=== PATIENT | male | born 1995 | race Caucasian/White ===

== ENCOUNTER 2017-01-26 09:34 | Emergency (ER) | payer OTHER ==
[2017-01-26 10:12] VITALS: BP 123/73
--- NOTE | 2017-01-26 11:36 | UC ---
Throat Pain/Nasal Shar HPI - HPI Summary HPI Summary: FIVE DAYS OF SINUS CONGESTION, RIGHT EAR PAIN PRESSURE, RUNNY NOSE. - History of Current Complaint Chief Complaint: UCRespiratory Stated Complaint: SINUS COMPLAINT Time Seen by Provider: 01/26/17 10:38 Hx Obtained From: Patient Onset/Duration: Gradual Onset, Lasting Days, Worse Since - TODAY Severity: Moderate Pain Intensity: 4 Pain Scale Used: 0-10 Numeric Cough: Nonproductive Associated Signs & Symptoms: Positive: Hoarseness, Sinus Discomfort, Nasal Discharge - Epiglottits Risk Factors Epiglottis Risk Factors: Negative - Allergies/Home Medications Allergies/Adverse Reactions: Allergies Allergy/AdvReac Type Severity Reaction Status Date / Time No Known Allergies Allergy Verified 01/26/17 10:12 PMH/Surg Hx/FS Hx/Imm Hx Previously Healthy: Yes - Surgical History Surgical History: Yes Surgery Procedure, Year, and Place: R shoulder - Family History Known Family History: Negative: Respiratory Disease - Social History Occupation: Employed Part-time, Student Lives: Dormitory/Roommates Alcohol Use: Weekly Substance Use Type: None Smoking Status (MU): Never Smoked Tobacco Review of Systems Constitutional: Negative Skin: Negative Eyes: Negative ENT: Ear Ache, Nasal Discharge, Sinus Congestion, Sinus Pain/Tenderness Respiratory: Cough Cardiovascular: Negative Gastrointestinal: Negative Genitourinary: Negative Motor: Negative Neurovascular: Negative Musculoskeletal: Negative Neurological: Negative Psychological: Negative Is Patient Immunocompromised?: No All Other Systems Reviewed And Are Negative: Yes Physical Exam Triage Information Reviewed: Yes Appearance: No Pain Distress, Well-Nourished, Ill-Appearing - MILDLY Vital Signs: Initial Vital Signs Temp 98.1 F 01/26/17 10:07 Pulse 93 01/26/17 10:07 Resp 16 01/26/17 10:07 BP 123/73 01/26/17 10:07 Pulse Ox 97 01/26/17 10:07 Vital Signs Reviewed: Yes Eye Exam: Normal ENT: Positive: Hearing grossly normal, Pharynx normal, Nasal congestion, TM bulging, TM dull, TM red - RIGHT Dental Exam: Normal Neck exam: Normal Neck: Positive: Supple, Nontender, No Lymphadenopathy Respiratory Exam: Normal Respiratory: Positive: Chest non-tender, Lungs clear, Normal breath sounds, No respiratory distress, No accessory muscle use Cardiovascular Exam: Normal Cardiovascular: Positive: RRR, No Murmur, Pulses Normal, Brisk Capillary Refill Abdominal Exam: Normal Musculoskeletal Exam: Normal Musculoskeletal: Positive: Strength Intact, ROM Intact Neurological Exam: Normal Psychological Exam: Normal Skin Exam: Normal Throat Pain/Nasal Course/Dx - Differential Dx/Diagnosis Differential Diagnosis/HQI/PQRI: Pharyngitis, Sinusitis, Tonsillitis, URI Provider Diagnoses: SINUSITIS; RIGHT OTITIS MEDIA Discharge - Discharge Plan Condition: Stable Disposition: HOME Prescriptions: Amoxicillin/Clavulanate TAB* [Augmentin TAB 875*] 875 mg PO BID #20 tab Patient Education Materials: Sinusitis (ED), Otitis Media (ED) Forms: *School Release, *Work Release Referrals: [facility] [Outside] No Primary Care Phys,NOPCP [Primary Care Provider] -
== END 2017-01-26 11:10 | disposition home or self-care (01) ==
LOC: UCCORT 09:34
DX: J32.9 Chronic sinusitis, unspecified (principal); H66.91 Otitis media, unspecified, right ear
CPT/HCPCS: 99202; G0463

== ENCOUNTER 2018-08-18 11:54 | Emergency (ER) | payer BC, OTHER ==
[2018-08-18 14:07] VITALS: BP 138/72
--- NOTE | 2018-08-18 14:18 | UC ---
HPI Wound/Suture Re-check - HPI Summary HPI Summary: 23 yo male her for suture removal Had surgery on right shoulder 15 days ago having some drainage no swelling or redness no fever min pain - History Of Current Complaint Chief Complaint: UCWounds Stated Complaint: STITCHES OUT Time Seen by Provider: 08/18/18 13:50 Hx Obtained From: Patient Onset/Duration: Other - post surgery Surgical Site: right shoulder Severity: Mild Pain Intensity: 0 Pain Scale Used: 0-10 Numeric Full Body (No Head): 1 - 2 vertical matress sutures,. slight thin discharge, no swelling or erthyema - Allergies/Home Medications Allergies/Adverse Reactions: Allergies Allergy/AdvReac Type Severity Reaction Status Date / Time No Known Allergies Allergy Verified 01/26/17 10:12 Home Medications: Home Medications NK [No Home Medications Reported] 08/18/18 [History Confirmed 08/18/18] PMH/Surg Hx/FS Hx/Imm Hx Previously Healthy: Yes - Surgical History Surgical History: Yes Surgery Procedure, Year, and Place: R shoulder - Family History Known Family History: Positive: Diabetes Negative: Respiratory Disease - Social History Alcohol Use: Weekly Substance Use Type: None Smoking Status (MU): Never Smoked Tobacco Review of Systems All Other Systems Reviewed And Are Negative: Yes Constitutional: Positive: Negative Skin: Positive: Negative Eyes: Positive: Negative ENT: Positive: Negative Respiratory: Positive: Negative Cardiovascular: Positive: Negative Gastrointestinal: Positive: Negative Genitourinary: Positive: Negative Motor: Positive: Negative Neurovascular: Positive: Negative Musculoskeletal: Positive: Other: - slight pain at surgical site Neurological: Positive: Negative Psychological: Positive: Negative Is Patient Immunocompromised?: Yes Physical Exam Triage Information Reviewed: Yes Appearance: Well-Appearing, No Pain Distress, Well-Nourished Vital Signs: Initial Vital Signs Temp 98.2 F 08/18/18 13:50 Pulse 82 08/18/18 13:50 Resp 16 08/18/18 13:50 BP 138/72 08/18/18 13:50 Pulse Ox 100 08/18/18 13:50 Vital Signs Reviewed: Yes Eyes: Positive: Conjunctiva Clear ENT: Positive: Hearing grossly normal. Negative: Nasal congestion, Nasal drainage, Trismus, Muffled voice, Hoarse voice Neck: Positive: Supple, Nontender Respiratory: Positive: Lungs clear, Normal breath sounds, No respiratory distress Cardiovascular: Positive: RRR, No Murmur Neurological: Positive: Alert Psychological Exam: Normal Skin Exam: Other - see image Course/Dx - Course Course Of Treatment: 2 sutures removed surgical site, scant d/s no erthyema steristrips x 3 applies - Diagnosis Provider Diagnosis: Encounter for removal of sutures Discharge - Sign-Out/Discharge Documenting (check all that apply): Patient Departure All imaging exams completed and their final reports reviewed: No Studies - Discharge Plan Condition: Good Disposition: HOME Patient Education Materials: Fam (ED) Referrals: No Primary Care Phys,NOPCP [Primary Care Provider] - Additional Instructions: call for any questions return for any problems I suggest you call you surgeon to let him or her know that you are still having some drainage from your surgical site - Billing Disposition and Condition Condition: GOOD Disposition: Home
== END 2018-08-18 14:24 | disposition home or self-care (01) ==
LOC: UCCORT 11:54
DX: S41.011D Laceration without foreign body of right shoulder, subsequent encounter (principal); X58.XXXD Exposure to other specified factors, subsequent encounter
CPT/HCPCS: 99211; G0463